=== PATIENT | male | born 1960 | race African-American/Black ===

== ENCOUNTER 2022-01-05 13:24 | Emergency (ER) | payer MEDICARE ==
[~2022-01-05] VITALS: Ht 177.8 cm; Wt 111.4 kg
[2022-01-05] MEDS ORDERED: GABAPENTIN 300 MG CAPSULE PO ONE (15:45)
[2022-01-05] MEDS ORDERED: KETOROLAC TROMETHAMINE 60 MG/2 ML VIAL IM ONE (15:45)
[2022-01-05] MEDS ORDERED: METHOCARBAMOL 500 MG TABLET PO ONE (15:45)
[2022-01-05] MEDS ORDERED: NAPR-1025 PO (18:11)
[2022-01-05] MEDS ORDERED: GABA-1181 PO (18:11)
[2022-01-05] MEDS ORDERED: METH-659 PO (18:11)
[2022-01-05 18:36] VITALS: BP 122/74
== END 2022-01-05 19:03 | disposition home or self-care (01) ==
LOC: EMS 13:24
DX: G57.92 Unspecified mononeuropathy of left lower limb (principal); M54.42 Lumbago with sciatica, left side; E11.9 Type 2 diabetes mellitus without complications; I10 Essential (primary) hypertension; G89.29 Other chronic pain
CPT/HCPCS: 72100; 73503; 82962; 96372; 99285; J1885